=== PATIENT | female | born 1970 | race Caucasian/White ===

== ENCOUNTER 2018-03-09 02:02 | Emergency (ER) | payer MEDICAID ==
[~2018-03-09] VITALS: Ht 157.5 cm; Wt 74.5 kg
[2018-03-09] MEDS ORDERED: IBUPROFEN 600MG TABLET PO ONE (03:30)
[2018-03-09 03:43] VITALS: BP 123/55
== END 2018-03-09 03:44 | disposition home or self-care (01) ==
LOC: ER 02:02
DX: J06.9 Acute upper respiratory infection, unspecified (principal); R04.0 Epistaxis; Z98.890 Other specified postprocedural states
CPT/HCPCS: 99283; Z7610